=== PATIENT | male | born 1965 | race African-American/Black ===

== ENCOUNTER 2018-04-02 19:25 | Emergency (ER) | payer OTHER ==
[~2018-04-02] VITALS: Ht 172.7 cm; Wt 88.5 kg
[2018-04-02 20:20] VITALS: BP 145/82
== END 2018-04-02 20:53 ==
LOC: ER 19:25
DX: I16.0 Hypertensive urgency (principal); K21.9 Gastro-esophageal reflux disease without esophagitis; Z87.442 Personal history of urinary calculi
CPT/HCPCS: 71045